=== PATIENT | male | born 1990 | race Caucasian/White ===

== ENCOUNTER 2018-12-09 21:00 | Emergency (ER) | payer MEDICAID ==
[~2018-12-09] VITALS: Ht 167.6 cm; Wt 64.4 kg
[2018-12-09 21:09] VITALS: Ht 167.6 cm; Wt 64.4 kg
[2018-12-09 22:47] VITALS: BP 135/79
== END 2018-12-09 22:47 | disposition home or self-care (01) ==
LOC: EDBD 21:00 → ED 21:00
DX: T23.222A Burn of second degree of single left finger (nail) except thumb, initial encounter (principal); Z90.89 Acquired absence of other organs; X19.XXXA Contact with other heat and hot substances, initial encounter; Y93.89 Activity, other specified; Y92.810 Car as the place of occurrence of the external cause; Y99.8 Other external cause status

== ENCOUNTER 2019-05-27 18:33 | Emergency (ER) | payer MEDICAID ==
[~2019-05-27] VITALS: Ht 167.6 cm; Wt 65.8 kg
[2019-05-27 19:00] VITALS: Ht 167.6 cm; Wt 65.8 kg
[2019-05-27 19:40] VITALS: BP 114/62
== END 2019-05-27 19:40 | disposition home or self-care (01) ==
LOC: ED 18:33
DX: J10.1 Influenza due to other identified influenza virus with other respiratory manifestations (principal); Z90.89 Acquired absence of other organs; Z88.0 Allergy status to penicillin
CPT/HCPCS: 87804

== ENCOUNTER 2019-05-29 13:24 | Emergency (ER) | payer MEDICAID ==
[~2019-05-29] VITALS: Ht 167.6 cm; Wt 64.0 kg
[2019-05-29 13:32] VITALS: Ht 167.6 cm; Wt 64.0 kg
[2019-05-29 17:40] VITALS: BP 106/59
== END 2019-05-29 17:46 | disposition home or self-care (01) ==
LOC: ED 13:24
DX: J11.1 Influenza due to unidentified influenza virus with other respiratory manifestations (principal); R51 Headache; J45.909 Unspecified asthma, uncomplicated; Z90.89 Acquired absence of other organs; Z88.0 Allergy status to penicillin
CPT/HCPCS: J1100; J1885; J2405